=== PATIENT | male | born 1970 | race Hispanic/Latino ===

== ENCOUNTER 2018-02-03 20:43 | Emergency (ER) | payer OTHER ==
[2018-02-03 21:11] LABS: BILIRUBIN,URINE Negative (NEGATIVE); COLOR,URINE Yellow (YELLOW); GLUCOSE, URINE (UA) Negative (NEGATIVE); KETONES,URINE Negative (NEGATIVE); LEUKOCYTE ESTERASE ,URINE Small (NEGATIVE); NITRATE,URINE Negative (NEGATIVE); OCCULT BLOOD,URINE Small (NEGATIVE); PROTEIN,URINE Negative (NEGATIVE)
[2018-02-03 21:16] LABS: APPEARANCE,URINE CLEAR (CLEAR)
[2018-02-03 21:33] LABS: BACTERIA,URINE Few /HPF (None Seen); SQUAMOUS EPITHELIAL CELL,UR Rare /HPF (0-2)
== END 2018-02-03 21:49 | disposition home or self-care (01) ==
LOC: EDH 20:43
DX: N39.0 Urinary tract infection, site not specified (principal)
CPT/HCPCS: 81001

== ENCOUNTER 2019-12-24 15:45 | Inpatient (IN) | payer OTHER ==
[~2019-12-24] VITALS: Ht 175.3 cm; Wt 109.0 kg
[2019-12-24 16:10] LABS: BASOPHILS % (AUTO) 0.3 % (0.0-5.0); EOSINOPHILS % (AUTO) 0.5 % (0.0-8.0); LYMPHOCYTES % (AUTO) 35.3 % (21.0-51.0); MEAN CORPUSCULAR HEMOGLOBIN 40.5 pg (27.0-33.0); MEAN CORPUSCULAR HGB CONC 34.4 g/dL (32.0-36.0); MEAN CORPUSCULAR VOLUME 117.8 fL (79-99); MONOCYTES % (AUTO) 5.9 % (3.0-13.0); NUCLEATED RED BLOOD CELLS 2.7 % (0.0-0.19); PLATELET COUNT (AUTO) 94 K/uL (130-400); RED BLOOD CELL COUNT(AUTO) 1.63 MIL/uL (4.50-6.20); RED CELL DISTRIBUTION WIDTH 21.6 % (11.0-15.5); WHITE BLOOD COUNT (AUTO) 6.2 K/uL (4.8-10.8)
[2019-12-24 16:17] LABS: CREATININE 0.9 mg/dL (0.5-1.5); POTASSIUM 3.8 mmol/L (3.5-5.1)
[2019-12-24 16:20] LABS: INR 1.03 (0.85-1.15); PARTIAL THROMBOPLASTIN TIME 24.3 SEC (26.3-35.5); PROTHROMBIN TIME 10.8 SEC (9.6-11.6)
[2019-12-24 16:23] LABS: ALBUMIN 3.4 g/dL (3.5-5.0); BILIRUBIN,TOTAL 2.3 mg/dL (0.2-1.0)
[2019-12-24 16:28] LABS: HEMATOCRIT 19.2 % (42-54)
[2019-12-24 17:03] LABS: BAND NEUTROPHILS % (MANUAL) 1 % (0-2); LYMPHOCYTES % (MANUAL) 31 % (22-44); MAN.DIFF COMMENT-IMPRESSION MANUAL DIFFERENTIAL; METAMYELOCYTES % 4 % (0-0); MONOCYTES % (MANUAL) 2 % (2-9); PLATELET MORPHOLOGY COMMENT DECREASED; SEGMENTED NEUTROPHILS % 62 % (40-70)
[2019-12-24] MEDS ORDERED: LACTULOSE 20 GM/30 ML UDCUP PO PRN (19:15)
[2019-12-24] MEDS ORDERED: IPRATROPIUM/ALBUTEROL SULFATE 3 ML SOLUTION IH PRN (19:15)
[2019-12-24] MEDS ORDERED: ONDANSETRON HCL 4 MG/2 ML VIAL IV PRN (19:15)
[2019-12-24] MEDS ORDERED: IOHEXOL-350 75 ML VIAL IV ONE (19:23)
[2019-12-24 20:03] LABS: HEMOGLOBIN A1C 5.8 % (4.0-6.0)
[2019-12-24 20:08] LABS: INR 1.02 (0.85-1.15); PARTIAL THROMBOPLASTIN TIME 21.9 SEC (26.3-35.5); PROTHROMBIN TIME 10.7 SEC (9.6-11.6)
[2019-12-24 20:11] LABS: % IRON SATURATION 81.5 % (30-44)
[2019-12-24 20:12] LABS: CHOLESTEROL 88 mg/dL (<200); HDL CHOLESTEROL 20 mg/dL (29-71); LDL DIRECT 60 mg/dL (0-99); TRIGLYCERIDES 196 mg/dL (30-200)
[2019-12-24] MEDS ORDERED: FAMOTIDINE/PF 20 MG/2 ML VIAL IV SCH (21:00)
[2019-12-24 23:20] VITALS: BP 141/87
--- NOTE | 2019-12-25 | NUR ---
PATIENT ARRIVED ON UNIT. RECEIVING 1 UNIT RBC. NO C/O BACK PAIN, SOB, ITCHING, OR TEMP. PATIENT CURRENTLY DENIES SOB STATED HAS BEEN EXPERIENCING SOB WITH EXERTION FOR THE LAST MONTH. DENIES MEDICAL HX.
--- NOTE | 2019-12-25 03:30 | NUR ---
BLOOD TRANSFUSION STARTED. NO S/S OF ADVERSE REACTION.
[2019-12-25 03:58] VITALS: BP 133/83
[2019-12-25] MEDS: SODIUM CHLORIDE 0.9% 1000ML 1,000 ML IV SCH ×2 (05:07→11:42)
[2019-12-25 05:13] LABS: APPEARANCE,URINE Clear (CLEAR); BILIRUBIN,URINE Negative (NEGATIVE); COLOR,URINE Yellow (YELLOW); GLUCOSE, URINE (UA) Negative (NEGATIVE); KETONES,URINE Negative (NEGATIVE); LEUKOCYTE ESTERASE ,URINE Moderate (NEGATIVE); NITRATE,URINE Negative (NEGATIVE); OCCULT BLOOD,URINE Negative (NEGATIVE); PROTEIN,URINE Negative (NEGATIVE)
[2019-12-25 05:29] LABS: RBC,URINE None Seen /HPF (0-1)
[2019-12-25 05:30] LABS: BACTERIA,URINE None Seen /HPF (None Seen); SQUAMOUS EPITHELIAL CELL,UR Rare /HPF (0-2); TRICHOMONAS,URINE Rare /LPF (None Seen)
[2019-12-25 07:54] VITALS: BP 137/91
--- NOTE | 2019-12-25 08:00 | NUR ---
AM ASSESSMENT PT LAYING IN BED, RESTING. FAMILY @ BEDSIDE. A/O X 3. SOB ON EXERTION. NO DISTRESS NOTED. DENIES CHEST PAIN OR DISCOMFORT. DENIES PALPITATIONS. TELE: SR/STARAJENDRA. DENIES N/V AND/OR DIARRHEA. BR W/BRP. INSTRUCTED TO CALL FOR ASSISTANCE. CALL MESERET W/IN REACH. PENDING HEMATOLOGY & GI CONSULT. MDs NOTFIED.
[2019-12-25] MEDS: LACTULOSE 20 GM/30 ML UDCUP PO SCH ×2 (08:20→21:36)
[2019-12-25] MEDS: FAMOTIDINE 20MG TAB 20 MG TAB PO SCH ×2 (08:20→21:37)
[2019-12-25 09:16] LABS: CREATININE 0.9 mg/dL (0.5-1.5); POTASSIUM 4.2 mmol/L (3.5-5.1)
[2019-12-25 10:32] LABS: BASOPHILS % (AUTO) 0.4 % (0.0-5.0); EOSINOPHILS % (AUTO) 0.6 % (0.0-8.0); HEMATOCRIT 25.4 % (42-54); LYMPHOCYTES % (AUTO) 35.5 % (21.0-51.0); MEAN CORPUSCULAR HEMOGLOBIN 36.6 pg (27.0-33.0); MEAN CORPUSCULAR HGB CONC 34.3 g/dL (32.0-36.0); MEAN CORPUSCULAR VOLUME 106.7 fL (79-99); MONOCYTES % (AUTO) 5.7 % (3.0-13.0); NEUTROPHILS % (AUTO) 53.7 % (40.0-77.0); NUCLEATED RED BLOOD CELLS 1.6 % (0.0-0.19); PLATELET COUNT (AUTO) 76 K/uL (130-400); RED BLOOD CELL COUNT(AUTO) 2.38 MIL/uL (4.50-6.20); WHITE BLOOD COUNT (AUTO) 5.1 K/uL (4.8-10.8)
[2019-12-25 11:43] VITALS: BP 140/98
[2019-12-25] MEDS ORDERED: DOXYCYCLINE 100MG+NS 250ML 250 ML IV SCH (12:15)
[2019-12-25 12:53] LABS: RETICULOCYTE % (AUTO) 2.55 % (0.42-2.23)
--- NOTE | 2019-12-25 14:15 | NUR ---
GI CONSULT CALL RECEIVED FROM VASHTI FROM DR Dilcia JEROME'S OFFICE. CONSULT INFO RELAYED. TO SEE PT LATER TODAY.
--- NOTE | 2019-12-25 15:24 | NUR ---
Initial Assessment SW met with patient. Patient lives with spouse. No home services or DME. 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 Patient is independent and able to complete ADL's. No PCP. Pharmacy is [facility] in [place]. DCP is home. Patient has no benefits or insurance. He is a citizen and has worked in the [employer]. Patient is being assisted by [employer]. SW provided patient with community resources for post discharge follow up and Good Rx Card for prescription discount. Addendum: 12/25/19 at 1527 by KRYSTAL VILLALOBOS Amended: Links added.
[2019-12-25 16:02] VITALS: BP 155/93
--- NOTE | 2019-12-25 18:30 | NUR ---
MD NOTIFICATION CALL RECEIVED FROM DR Dilcia JEROME'S OFFICE. SPOKE W/KINZA KINGSTON TO HAVE EGD TOMORROW BY DR Dilcia JEROME.
[2019-12-25 19:47] VITALS: BP 152/98
[2019-12-25] MEDS: DOXYCYCLINE 100MG+NS 250ML 250 ML IV SCH (21:37)
[2019-12-25] MEDS: CEFTRIAXONE SODIUM 1 GM IV SCH (21:37)
[2019-12-25 23:17] VITALS: BP 142/67
[2019-12-26] VITALS (21 sets, daily range): BP systolic 111–141; BP diastolic 56–97
--- NOTE | 2019-12-26 07:15 | NUR ---
STATUS PT TAKEN TO ENDOSCOPY VIA BED FOR EGD. TELE JOHN PAUL REMOVED. SPOUSE @ BEDSIDE.
[2019-12-26] MEDS ORDERED: PROPOFOL 10 MG/ML 20ML VIAL IV ONE (08:14)
[2019-12-26] MEDS ORDERED: CYANOCOBALAMIN (VITAMIN B-12) 1000 MCG/ML 1ML VIAL IM SCH (08:15)
[2019-12-26] MEDS: CEFTRIAXONE SODIUM 1 GM IV SCH (08:53)
[2019-12-26] MEDS: DOXYCYCLINE 100MG+NS 250ML 250 ML IV SCH (08:53)
[2019-12-26 09:11] LABS: HEPATITIS A ANTIBODY IGM Negative (Negative); HEPATITIS B CORE IGM Negative (Negative); HEPATITIS Bs ANTIGEN SCREEN P Negative (Negative)
--- NOTE | 2019-12-26 09:15 | NUR ---
STATUS/AM ASSESSMENT PT RECEIVED FROM PACU VIA BED, S/P EGD BY DR Dilcia JEROME. A/O X 3. NO SOB. NO DISTRESS NOTED. DENIES PAIN OR DISCOMFORT. DENIES PALPITATIONS. TELE. STACH 100s. DENIES N/V. DIET TO BE RESUMED, CLEAR LIQUIDS ORDERED. DIET TO BE ADVANCED TOLERATED. INSTRUCTED TO CALL FOR ASSISTANCE. CALL MESERET W/IN REACH.
[2019-12-26] MEDS: FAMOTIDINE 20MG TAB 20 MG TAB PO SCH (10:12)
[2019-12-26] MEDS: LACTULOSE 20 GM/30 ML UDCUP PO SCH (10:12)
[2019-12-26 11:13] LABS: CREATININE 0.8 mg/dL (0.5-1.5); POTASSIUM 3.9 mmol/L (3.5-5.1)
[2019-12-26 11:14] LABS: HEMATOCRIT 24.6 % (42-54); MEAN CORPUSCULAR HGB CONC 34.6 g/dL (32.0-36.0); MEAN CORPUSCULAR VOLUME 104.2 fL (79-99); NUCLEATED RED BLOOD CELLS 0.5 % (0.0-0.19); PLATELET COUNT (AUTO) 81 K/uL (130-400); RED BLOOD CELL COUNT(AUTO) 2.36 MIL/uL (4.50-6.20); WHITE BLOOD COUNT (AUTO) 4.3 K/uL (4.8-10.8)
[2019-12-26 11:16] LABS: RETICULOCYTE % (AUTO) 3.03 % (0.42-2.23)
--- NOTE | 2019-12-26 12:40 | NUR ---
PULMONOLOGY BPC SIGNING OFF.
--- NOTE | 2019-12-26 14:55 | NUR ---
MD NOTIFICATION DR ANDRES NOTIFIED PT MAY CLEARED FOR DC HOME BY DR ROSA & F/U IN 1 WEEK.
--- NOTE | 2019-12-26 17:40 | NUR ---
DISCHARGE TELE JOHN PAUL REMOVED. IV DC'D BY Rajesh MACDONALD RN. PT & FAMILY NOTIFIED PLAN TO DC HOME TODAY.
--- NOTE | 2019-12-26 18:00 | NUR ---
DISCHARGE PT TAKEN TO PRIVATE VEHICLE VIA WC BY Vikas SOLIMAN PCP, ACCOMPANIED BY FAMILY. NO DISTRESS NOTED.
== END 2019-12-26 18:15 | disposition home or self-care (01) | DRG 809 ==
LOC: EDH 15:45 → EDHIP 15:46 → 2AH 23:03
PROVIDERS: ADMIT Internal Medicine; ATTEND Internal Medicine
PROC: 30233N1 Transfusion of Nonautologous Red Blood Cells into Peripheral Vein, Percutaneous Approach (ICD-10-PCS; principal; 2019-12-26)
PROC: 0DB68ZX Excision of Stomach, Via Natural or Artificial Opening Endoscopic, Diagnostic (ICD-10-PCS; 2019-12-26)
DX: D61.818 Other pancytopenia (principal); J98.11 Atelectasis; K92.2 Gastrointestinal hemorrhage, unspecified; D62 Acute posthemorrhagic anemia; D53.9 Nutritional anemia, unspecified; D53.1 Other megaloblastic anemias, not elsewhere classified; D73.1 Hypersplenism; E53.8 Deficiency of other specified B group vitamins; E66.9 Obesity, unspecified; K42.9 Umbilical hernia without obstruction or gangrene; K31.89 Other diseases of stomach and duodenum; D50.9 Iron deficiency anemia, unspecified; K59.00 Constipation, unspecified; K74.60 Unspecified cirrhosis of liver; K76.0 Fatty (change of) liver, not elsewhere classified; Z68.35 Body mass index [BMI] 35.0-35.9, adult; Z82.3 Family history of stroke
CPT/HCPCS: 36415; 36430; 43239; 71045; 71275; 74176; 76700; 80048; 80053; 80061; 80074; 81001; 82103; 82104; 82140; 82270; 82550; 82607; 82746; 83010; 83036; 83540; 83550; 83690; 83880; 84145; 84484; 85025; 85027; 85045; 85378; 85384; 85610; 85730; 86038; 86215; 86235; 86255; 86850; 86900; 86901; 86922; 87040; 87088; 93005; 93970; 94664; A4606; G0378; J0696; J2704; J3420; J3490; J7030; P9016; Q9967